=== PATIENT | female | born 1990 | race Caucasian/White ===

== ENCOUNTER → 2016-09-30 | Outpatient (CLI) | payer MEDICAID ==
[2016-09-30 11:03] LABS: CH 29.7; CHCM 32.2; HCT 35.1 % (34.0-46.0); HDW 2.42; HGB 11.2 gm/dL (11.4-16.0); MCH 29.6 pg (25.0-35.0); MCHC 31.9 g/dL (31.0-37.0); MCV 92.9 fL (80.0-100.0); RBC 3.78 m/uL (3.80-5.40); RDW 12.8 % (11.5-15.5)
== END | disposition home or self-care (01) ==
LOC: LABWHC1 09:31
PROVIDERS: ATTEND Obstetrics & Gynecology
DX: Z34.82 Encounter for supervision of other normal pregnancy, second trimester (principal); Z3A.00 Weeks of gestation of pregnancy not specified
CPT/HCPCS: 36415; 82950; 85027

== ENCOUNTER → 2016-12-06 | Outpatient (CLI) | payer MEDICAID ==
--- NOTE | 2016-12-06 16:42 | US ---
EXAMINATION TYPE: US OB anatomy transabd DATE OF EXAM: 12/06/2016 2:17 PM COMPARISON: 08/13/2016 HISTORY: 26-year-old female Large for dates O36.63X0 TECHNIQUE: Transabdominal (TA) EXAM MEASUREMENTS: GESTATIONAL AGE / DATING Physician Established: (35 weeks/3 days) EDC: 01/07/2017 Dates by LMP: (35 weeks/3 days) EDC: 01/07/2017 Dates by First Scan: (36 weeks/0 days) EDC: 01/03/2017 Dates by Current Scan for: (35 weeks/5 days) EDC: 01/05/2017 SURVEY IUP: Single PLACENTA: Anterior PREVIA: No previa MADI: 14.9 cm Normal CERVICAL LENGTH (transabdominal: norm > 3.0cm): 4.5 cm BIOMETRY PRESENTATION: Vertex LIE: Longitudinal BPD: 8.9 cm 35 weeks / 6 days HC: 31.8 cm 35 weeks / 5 days AC: 32.3 cm 36 weeks / 1 day FL: 6.9 cm 35 weeks / 2 days ESTIMATED WEIGHT IN GRAMS: 2793 grams ESTIMATED WEIGHT IN LBS/OZS: 6 lbs. 3 oz. 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 Single live intrauterine with estimated gestational age of 35 weeks 3 days by LMP. [facility] ultrasound biometry is concordant (35 weeks 5 days) place and the child at the 62nd percentile for weight. 2. A number of structures on the survey were either not seen or suboptimally visualized due to relatively advanced age.
== END | disposition home or self-care (01) ==
LOC: RADUSWWP 13:30
PROVIDERS: ATTEND Obstetrics & Gynecology
DX: O36.63X0 Maternal care for excessive fetal growth, third trimester, not applicable or unspecified (principal); Z3A.35 35 weeks gestation of pregnancy
CPT/HCPCS: 76811

== ENCOUNTER 2017-01-06 06:11 | Inpatient (IN) | payer MEDICAID ==
--- NOTE | 2017-01-05 20:50 | P.HPOB ---
History of Present Illness H&P Date: 01/05/17 Chief Complaint: Induction of labor This is a 26-year-old female 2 para 1 with an estimated date of confinement of 01/07/2017, estimated gestational age of 39-6/7 weeks, who presents to labor and delivery for induction of labor. She admits to good movement. She denies any rupture of membranes. She has been feeling irregular cramping and contractions. She also complains of continued swelling in her hands and feet. labs: Toxoplasma-negative Syphilis screening-negative HIV-nonreactive Random glucose-74 Hepatitis B surface antigen-negative Hemoglobin-11.9 Rubella-immune Blood type-old positive Antibody screen-negative Obstetrical ultrasound-normal anatomy One hour Glucola-118 Group B streptococcus-negative Obstetrical history: . History of 1 vaginal delivery at term with no complications. Gynecologic history: No history of sexual transmitted diseases. She does have a history of cold knife cone for TENNILLE-3 in approximately 2010. Social history: She is . 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 Review of Systems Constitutional: Denies chills, Denies fever Ears, nose, mouth and throat: Reports sinus pressure Cardiovascular: Denies chest pain Respiratory: Denies cough Gastrointestinal: Reports abdominal pain (Irregular contractions) Genitourinary: Reports pelvic pain, Reports Musculoskeletal: Denies myalgias Musculoskeletal: bilateral: foot swelling, hand swelling Neurological: Denies numbness, Denies weakness Past Medical History Past Medical History: No Reported History Additional Past Medical History / Comment(s): TMJ History of Any Multi-Drug Resistant Organisms: None Reported Past Surgical History: Cholecystectomy Additional Past Surgical History / Comment(s): Cervical cold knife cone biopsy 2010 Past Anesthesia/Blood Transfusion Reactions: No Reported Reaction Past Psychological History: No Psychological Hx Reported Smoking Status: Never smoker Past Alcohol Use History: None Reported Past Drug Use History: None Reported - Past Family History Mother Family Medical History: No Reported History Medications and Allergies Home Medications Medication Instructions Recorded Confirmed Type Pnv with Ca,No.71/Iron/FA 1 tab PO DAILY 06/11/15 06/12/15 History [Vol-Plus Tablet] Allergies Allergy/AdvReac Type Severity Reaction Status Date / Time prochlorperazine edisylate AdvReac Unknown Verified 06/12/15 06:12 [From Compazine] prochlorperazine maleate AdvReac Unknown Verified 06/12/15 06:12 [From Compazine] Exam Osteopathic Statement: *. No significant issues noted on an osteopathic structural exam other than those noted in the History and Physical/Consult. HEENT: Within normal limits Heart: Regular rate and rhythm Lungs: Clear to auscultation bilaterally Abdomen: Cervix: 1 L/60%/-2 heart tones: 140s by Doppler Extremities: Negative Homans Assessment and Plan (1) 39 weeks gestation of Status: Acute Plan: Proceed with induction of labor. Expectant management. Epidural anesthesia if desired.
[2017-01-06] MEDS ORDERED: CARBOPROST TROMETHAMINE 250 MCG/ML 1 ML AMP IM PRN (06:38)
[2017-01-06] MEDS ORDERED: TERBUTALINE 1 MG/ML VIAL SQ PRN (06:38)
[2017-01-06] MEDS ORDERED: OXYTOCIN 20 UNITS/1000 ML NS 1,000 ML IV SCH ×2 (06:38→15:12)
[2017-01-06] MEDS ORDERED: OXYTOCIN 10 UNIT/ML 1 ML VIAL IM PRN (06:38)
[2017-01-06] MEDS ORDERED: LIDOCAINE 1% (PF) 10 MG/ML (30 ML SDV) SQ PRN (06:38)
[2017-01-06] MEDS ORDERED: METHYLERGONOVINE 0.2 MG/ML 1 ML AMP IM PRN (06:38)
[2017-01-06] MEDS: LACTATED RINGERS 1,000 ML IV SCH ×3 (07:10→11:50)
[2017-01-06 07:17] LABS: Basophils % (A) 0 %; CH 29.5; CHCM 32.6; Eosinophils # (A) 0.1 k/uL (0-0.7); Eosinophils % (A) 1 %; HCT 33.8 % (34.0-46.0); Luc # (Auto) 0.22; Luc % (Auto) 3; Lymphocytes # (A) 1.7 k/uL (1.0-4.8); Lymphocytes % (A) 23 %; MCH 29.6 pg (25.0-35.0); MCHC 32.6 g/dL (31.0-37.0); Mean Platelet Volume 9.8; Monocytes # (A) 0.4 k/uL (0-1.0); Monocytes % (A) 6 %; Neutrophils % (A) 67 %; RBC 3.71 m/uL (3.80-5.40); WBC 7.5 k/uL (3.8-10.6); WBC (Perox) 7.73
[2017-01-06 07:41] VITALS: BMI 82.8
[2017-01-06] MEDS ORDERED: BUPIVACAINE (PF) 0.25% 30 ML VIAL ONE (10:45)
[2017-01-06] MEDS ORDERED: SODIUM CHLORIDE 0.9% 100 ML BAG ONE (10:45)
[2017-01-06] MEDS ORDERED: fentaNYL (PF) 50 MCG/ML 5 ML AMP ONE (10:45)
[2017-01-06] MEDS ORDERED: BUPIVACAINE (PF) 0.25% 25 ML, fentaNYL (PF) 200 MCG in SODIUM CHLORIDE 0.9% 71 ML EPIDURAL ONE (11:08)
[2017-01-06] MEDS ORDERED: diphenhydrAMINE 50 MG/ML 1 ML VIAL IVP PRN ×2 (15:12)
[2017-01-06] MEDS ORDERED: diphenhydrAMINE 25 MG CAP PO PRN (15:12)
[2017-01-06] MEDS ORDERED: diphenhydrAMINE 50 MG CAP PO PRN (15:12)
[2017-01-06] MEDS ORDERED: ZOLPIDEM 5 MG TAB PO PRN (15:12)
[2017-01-06] MEDS ORDERED: ACETAMINOPHEN TAB 325 MG TAB PO PRN (15:12)
[2017-01-06] MEDS ORDERED: WITCH HAZEL 1 EACH MED..PAD TOPICAL PRN (15:12)
[2017-01-06] MEDS ORDERED: Acetaminophen-Codeine 300-30mg TAB PO PRN ×2 (15:12)
[2017-01-06] MEDS ORDERED: BENZOCAINE/MENTHOL SPRAY 1 GM/SPRAY AEROSOL TOPICAL PRN (15:12)
[2017-01-06] MEDS ORDERED: LANOLIN CREAM 5 GM TUBE TOPICAL PRN (15:12)
[2017-01-06] MEDS ORDERED: FAMOTIDINE 20 MG TAB PO PRN (15:12)
[2017-01-06] MEDS ORDERED: HYDROCORTISONE 2.5% RECTAL CREAM 30 GM TUBE RECTAL PRN (15:12)
[2017-01-06] MEDS ORDERED: SIMETHICONE 80 MG CHEWABLE PO PRN (15:12)
[2017-01-06 15:50] VITALS: RESP 16
[2017-01-06] MEDS: IBUPROFEN 600 MG TAB PO PRN ×2 (16:59→23:24)
--- NOTE | 2017-01-06 17:38 | P.PROBDLV ---
Vaginal Delivery Note - . Vaginal Delivery Note: The patient progressed to complete dilation for oxytocin induction of labor and artificial rupture membranes with clear fluid noted. She did receive epidural anesthesia. Once reaching complete dilation, she began pushing. Infant's head came to a crown. Perineum was anesthetized with 1% lidocaine and a midline episiotomy was cut. With one further push, the contents head delivered across the perineum followed by the anterior shoulder. Nose and mouth were bulb suctioned at the perineum. With one further push the remainder the easily delivered and was placed on mother's abdomen reducing a nuchal cord times one around the 's body with delivery. Cord was clamped and cut. Infant was taken to warmer for evaluation. A viable female infant was noted with scores of 9 at 1 minute and 9 at 5 minutes and infant weight of 7 lbs. 4 oz. Placenta delivered shortly thereafter, intact, with a three-vessel cord. Uterus contracted well after oxytocin was given and uterine massage was carried out. Inspection of the perineum revealed a midline episiotomy with no further extension. Estimated blood loss is approximately 200 mL's. Both mother and are in stable condition.
[2017-01-06] MEDS: SENNOSIDES-DOCUSATE SODIUM 1 EACH TAB PO SCH (20:26)
[2017-01-07] MEDS: IBUPROFEN 600 MG TAB PO PRN (08:30)
[2017-01-07] MEDS: SENNOSIDES-DOCUSATE SODIUM 1 EACH TAB PO SCH (08:31)
--- NOTE | 2017-01-07 08:42 | P.DS ---
Providers Date of admission: 01/06/17 06:11 Expected date of discharge: 01/07/17 Attending physician: Rachael Nicole Primary care physician: Oscar Claros - Discharge Diagnosis(es) (1) 39 weeks gestation of Current Visit: Yes Status: Acute Hospital Course: This is a 26-year-old female 2 para 1 who presented for induction of labor. She delivered vaginally a viable female with scores of 9 at 1 minute and 9 at 5 minutes and weight of 7 lbs. 4 oz. on 01/06/2017. Her course has been uncomplicated. She is breast-feeding. Lochia is decreasing. Pain is well-controlled with ibuprofen. Vital signs are stable. Abdomen is soft with fundus firm and nontender. Extremities show negative Homans. Impression is status post vaginal delivery day #1. Plan is to discharge home today. Routine instructions are given. She will be given a prescription for ibuprofen. She already has a breast pump at home. She is advised to follow up in the office in 6 weeks for a check. She is advised to call the office if she has any questions or concerns prior to her appointment time. Procedures: Oxytocin induction of labor Spontaneous vaginal delivery of a viable female on 01/06/2017 Patient Condition at Discharge: Stable Plan - Discharge Summary New Discharge Prescriptions: Ibuprofen [Motrin] 600 mg PO Q6HR PRN #60 tab PRN Reason: Mild Pain Or Fever >= 100.5 Discharge Medication List Pnv with Ca,No.71/Iron/FA [Vol-Plus Tablet] 1 tab PO DAILY 06/11/15 [History] Acetaminophen Tab [Tylenol] 1,000 mg PO Q6HR PRN 01/06/17 [History] Ranitidine HCl [Zantac] 150 mg PO BID PRN 01/06/17 [History] Ibuprofen [Motrin] 600 mg PO Q6HR PRN #60 tab 01/07/17 [Rx] Follow up Appointment(s)/Referral(s): Rachael Nicole DO [Doctor of Osteopathic Medicine] - 6 Weeks Activity/Diet/Wound Care/Special Instructions: Instructions 1. Do not begin any exercise program for 3 weeks. 2. Do not resume sexual relations for 3 weeks or longer if uncomfortable. 3. You may take tub baths or showers at any time. 4. You may use tampons if desired after 3 weeks. 5. Keep the area of episiotomy (stitches) clean and dry. 6. If you are not nursing, wear a good fitting, supportive bra during the day and limit fluid intake for at least 1 week to prevent breast engorgement. 7. Call the office, [phone], within the next week to make appointment for your 6 week checkup if it has not already been made. 8. Report any of the following occurrences to the doctor promptly: a. Heavy, excessive bleeding b. Chills, fever c. Burning or frequency of urination d. Pain or redness and breasts if nursing e. Increasing pain or swelling in episiotomy (stitches). In addition to the above instructions, the following additional should be followed: 1. No heavy lifting or straining (exercising) until after 6 week checkup. 2. Keep abdominal incision clean and dry: You may wear a dressing if more comfortable. 3. Make office appointment for 10 days after going home or as instructed by her doctor. Discharge Disposition: HOME SELF-CARE
[2017-01-07 08:52] LABS: Basophils % (A) 0 %; CHCM 32.7; Eosinophils # (A) 0.1 k/uL (0-0.7); Eosinophils % (A) 1 %; HCT 32.9 % (34.0-46.0); HDW 2.44; HGB 10.7 gm/dL (11.4-16.0); Luc % (Auto) 2; Lymphocytes # (A) 1.4 k/uL (1.0-4.8); Lymphocytes % (A) 15 %; MCH 30.1 pg (25.0-35.0); MCHC 32.7 g/dL (31.0-37.0); Mean Platelet Volume 11.2; Monocytes # (A) 0.4 k/uL (0-1.0); Monocytes % (A) 5 %; Neutrophils # (A) 7.2 k/uL (1.3-7.7); Neutrophils % (A) 78 %; RBC 3.57 m/uL (3.80-5.40); RDW 14.3 % (11.5-15.5); WBC 9.3 k/uL (3.8-10.6); WBC (Perox) 9.74
[2017-01-07 16:56] VITALS: BP 124/76; PULSE 84; TEMP 98.2
== END 2017-01-07 16:30 | disposition home or self-care (01) | DRG 775 ==
LOC: 4FBP 06:11
PROVIDERS: ADMIT Obstetrics & Gynecology; ATTEND Obstetrics & Gynecology
PROC: 10E0XZZ Delivery of Products of Conception, External Approach (ICD-10-PCS; principal; 2017-01-06)
PROC: 10907ZC Drainage of Amniotic Fluid, Therapeutic from Products of Conception, Via Natural or Artificial Opening (ICD-10-PCS; 2017-01-06)
PROC: 3E033VJ Introduction of Other Hormone into Peripheral Vein, Percutaneous Approach (ICD-10-PCS; 2017-01-06)
PROC: 0W8NXZZ Division of Female Perineum, External Approach (ICD-10-PCS; 2017-01-06)
PROC: 3E0S3NZ Introduction of Analgesics, Hypnotics, Sedatives into Epidural Space, Percutaneous Approach (ICD-10-PCS; 2017-01-06)
DX: O69.89X0 Labor and delivery complicated by other cord complications, not applicable or unspecified (principal); M79.89 Other specified soft tissue disorders; Z86.001 Personal history of in-situ neoplasm of cervix uteri; Z37.0 Single live birth; Z3A.39 39 weeks gestation of pregnancy; Z88.8 Allergy status to other drugs, medicaments and biological substances; Z90.49 Acquired absence of other specified parts of digestive tract; Z87.39 Personal history of other diseases of the musculoskeletal system and connective tissue
CPT/HCPCS: 85025; 88307

== ENCOUNTER → 2018-03-22 | Outpatient (CLI) | payer MEDICAID ==
--- NOTE | 2018-03-22 08:24 | MR ---
EXAMINATION TYPE: MR angio head wo con DATE OF EXAM: 03/22/2018 8:02 AM COMPARISON: NONE HISTORY: PARK Three-dimensional [id number] intracranial MRA was performed with multiple intensity projection im ages submitted and source data reviewed at the workstation. The vertebrobasilar system as well as intracranial portions of the internal carotid arteries and thei r major tributaries are patent. I do not see evidence for sizable aneurysm or vascular malformation. IMPRESSION: Normal study.
--- NOTE | 2018-03-22 08:28 | MR ---
PRE AND POSTCONTRAST ENHANCED MRI OF THE BRAIN: CLINICAL HISTORY: Headache CONTRAST: 8.5ml gadavist Multiplanar and multispin-echo imaging of the brain was performed both before and after the administr ation of contrast. The ventricles, basal cisterns and sulci overlying the cerebral convexities are within normal limits. There is no evidence for midline shift or mass effect. Acute intracranial hemorrhage or extra-axial collection is not evident. There are small scattered foci of increased signal on the T2 FLAIR data set totaling approximately 7 within the right cerebral hemisphere and 7 within the left cerebral hemisphere measuring up to 3.4 mm in size. Lesions are predominantly subcortical in location and are nonspecific. Differential diagnos tic possibilities include sequela of chronic migraine headache, vasculitis, demyelinating disease, an d Lyme's disease among other possibilities. Following contrast administration, there is no evidence for pathologic enhancement or enhancing mass. The paranasal sinuses and mastoid air cells are well-aerated. IMPRESSION: Scattered nonspecific T2 lesions as noted above. Otherwise unremarkable study.
== END | disposition home or self-care (01) ==
LOC: RADMRIMAIN 07:08
PROVIDERS: ATTEND Family Medicine
DX: R90.89 Other abnormal findings on diagnostic imaging of central nervous system (principal); R51 Headache
CPT/HCPCS: 70544; 70553; A9581

== ENCOUNTER → 2018-12-04 | Outpatient (CLI) | payer MEDICAID ==
[2018-12-04 13:53] LABS: Basophils % (A) 1 %; Eosinophils # (A) 0.2 k/uL (0-0.7); Eosinophils % (A) 3 %; HCT 36.5 % (34.0-46.0); HGB 12.6 gm/dL (11.4-16.0); Lymphocytes % (A) 35 %; MCH 30.1 pg (25.0-35.0); MCHC 34.5 g/dL (31.0-37.0); MCV 87.3 fL (80.0-100.0); Mean Platelet Volume 9.9; Monocytes # (A) 0.3 k/uL (0-1.0); Monocytes % (A) 5 %; Neutrophils # (A) 3.1 k/uL (1.3-7.7); Neutrophils % (A) 54 %; Platelet Count 178 k/uL (150-450); RBC 4.19 m/uL (3.80-5.40); WBC 5.7 k/uL (3.8-10.6)
== END | disposition home or self-care (01) ==
LOC: LABPAT 12:09
PROVIDERS: ATTEND Obstetrics & Gynecology
DX: Z01.812 Encounter for preprocedural laboratory examination (principal)
CPT/HCPCS: 85025

== ENCOUNTER 2018-12-05 07:08 | Day surgery (SDC) | payer MEDICAID ==
[2018-11-29 09:23] VITALS: BMI 31.3
--- NOTE | 2018-12-04 20:00 | P.HPOB ---
History of Present Illness H&P Date: 12/04/18 Chief Complaint: Menorrhagia with regular cycle This is a 28-year-old female 2 para 2 who presents for dilation and curettage with hysteroscopy and NovaSure endometrial ablation secondary to menorrhagia with regular cycle. She is on control pills and has been having breakthrough bleeding for at least 3 days of the third week of her pack. Her menses are heavy and lasting 5-7 days. She does have a history of heavy menses before her control pills. Her plans to have a vasectomy. Pelvic ultrasound showed uterus measuring 6.6 x 3 x 4.4 cm. Endometrial thickness was 0.5 cm. Both ovaries appeared normal. Obstetrical history: . History of 2 vaginal deliveries. Gynecologic history: No history of sexual transmitted diseases. Social history: She is . 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 Review of Systems Constitutional: Denies chills, Denies fever Eyes: denies blurred vision, denies pain Ears, nose, mouth and throat: Denies sore throat Cardiovascular: Denies chest pain, Denies shortness of breath Respiratory: Denies cough Gastrointestinal: Denies abdominal pain, Denies diarrhea, Denies nausea, Denies vomiting Genitourinary: Reports dysmenorrhea, Denies dysuria, Denies hematuria Musculoskeletal: Denies myalgias Integumentary: Denies pruritus, Denies rash Neurological: Reports headaches, Reports numbness (Hands) Psychiatric: Reports anxiety Endocrine: Denies fatigue, Denies weight change Past Medical History Additional Past Medical History / Comment(s): TMJ, migraines History of Any Multi-Drug Resistant Organisms: None Reported Past Surgical History: Cholecystectomy Additional Past Surgical History / Comment(s): Cervical cold knife cone biopsy, colonoscopy, EGD. Past Anesthesia/Blood Transfusion Reactions: No Reported Reaction Past Psychological History: Anxiety Smoking Status: Former smoker Past Alcohol Use History: Occasional Additional Past Alcohol Use History / Comment(s): Social smoker for few yrs, quit 5 yrs ago. Past Drug Use History: None Reported - Past Family History Mother Family Medical History: No Reported History Father Family Medical History: Hypertension Medications and Allergies Home Medications Medication Instructions Recorded Confirmed Type Cetirizine HCl [Zyrtec] 10 mg PO DAILY PRN 11/29/18 11/29/18 History Citalopram Hydrobromide [CeleXA] 10 mg PO QAM 11/29/18 11/29/18 History Multivitamins, Thera [Multivitamin 1 tab PO DAILY 11/29/18 11/29/18 History (formulary)] Propranolol HCl 60 mg PO QAM 11/29/18 11/29/18 History Allergies Allergy/AdvReac Type Severity Reaction Status Date / Time prochlorperazine edisylate AdvReac Confusion Verified 11/29/18 09:11 [From Compazine] prochlorperazine maleate AdvReac Confusion Verified 11/29/18 09:11 [From Compazine] Exam Osteopathic Statement: *. No significant issues noted on an osteopathic structural exam other than those noted in the History and Physical/Consult. HEENT: Within normal limits Heart: Regular rate and rhythm Lungs: Clear to auscultation bilaterally Abdomen: Soft, nontender Pelvic exam: Uterus is anteverted, nontender, with no adnexal masses or tenderness palpated. Extremities: Negative Homans Assessment and Plan (1) Menorrhagia with regular cycle Status: Acute Code(s): N92.0 - EXCESSIVE AND FREQUENT MENSTRUATION WITH REGULAR CYCLE SNOMED Code(s): 880284310 Plan: Proceed with dilation and curettage with hysteroscopy and NovaSure endometrial ablation. I have discussed the risks, benefits, and alternative therapies for the above- mentioned procedure and for both sedation/anesthesia as well as necessary blood products administration, if indicated, as they pertain to this patient. The patient has indicated her understanding and acceptance of the risks and procedures discussed.
[~2018-12-05 07:08] MED LIST: DEXAMETHASONE SOD PHOSPHATE 10 MG/ML 1 ML VIAL IV ONE; LACTATED RINGERS 1,000 ML IV SCH; LIDOCAINE 1% 20 ML VIAL (10MG/ML) FOR IV START INTRADERMA PRN; MIDAZOLAM (PF) 2 MG/2 ML VIAL IV PRN; ONDANSETRON 4 MG/2 ML VIAL IVP ONE; Pre Op ABX Message 1 EACH MISC MISCELLANE ONE; fentaNYL (PF) 50 MCG/ML 2 ML AMP IV PRN
[2018-12-05 07:33] VITALS: RESP 16
[2018-12-05] MEDS ORDERED: fentaNYL (PF) 50 MCG/ML 2 ML AMP ONE (08:31)
[2018-12-05] MEDS ORDERED: LIDOCAINE 1% INJ 10MG/ML (20 ML MDV) ONE (08:31)
[2018-12-05] MEDS ORDERED: KETOROLAC 30 MG/ML 1 ML VIAL ONE (08:31)
[2018-12-05] MEDS ORDERED: MIDAZOLAM 2 MG/2 ML VIAL ONE (08:31)
[2018-12-05] MEDS ORDERED: PROPOFOL 10 MG/ML 20 ML VIAL IV ONE (08:31)
--- NOTE | 2018-12-05 09:06 | P.OP ---
Date of Procedure: 12/05/18 Preoperative Diagnosis: Menorrhagia with regular cycle Postoperative Diagnosis: Same Procedure(s) Performed: Dilation and curettage with hysteroscopy and NovaSure endometrial ablation Anesthesia: other (Mask general) Surgeon: Rachael Nicole Estimated Blood Loss (ml): 10 Pathology: other (Endometrial curettings) Condition: stable Disposition: same day Indications for Procedure: This is a 28-year-old female 2 para 2 who presents for dilation and curettage with hysteroscopy and NovaSure endometrial ablation secondary to menorrhagia with regular cycle. She is on control pills and has been having breakthrough bleeding for at least 3 days of the third week of her pack. Her menses are heavy and lasting 5-7 days. She does have a history of heavy menses before her control pills. Her plans to have a vasectomy. Pelvic ultrasound showed uterus measuring 6.6 x 3 x 4.4 cm. Endometrial thickness was 0.5 cm. Both ovaries appeared normal. Operative Findings: Uterus is sounded to 8 cm. Cervix is sounded to 3 cm. Upon hysteroscopy, slightly dyssynchronous endometrial pattern was noted with possible endometrial polyp. A moderate amount of endometrial curettings are obtained. Grade 2 cystocele is noted along with grade 1-2 uterine prolapse. Description of Procedure: The patient is taken to the operating room. She is placed in the dorsal lithotomy position after general anesthesia was given. She is prepped and draped in the normal sterile fashion. Bladder is drained with a catheter and then removed. Pelvic exam is performed under anesthesia. Uterus is found to be anteverted with no adnexal masses. She is placed in slight Trendelenburg position. A right angle retractor is used to visualize the cervix. The anterior lip of the cervix is grasped with a single-tooth tenaculum. Cervix is sounded to 3 cm. Uterus is sounded to 8 cm. Cervix is gently dilated with Rooney dilators until a hysteroscope could be passed. Hysteroscopy is performed using normal saline. The above noted findings are noted. Next a polyp forceps is introduced. A moderate amount of tissue was obtained. Next medium-sized size sharp curette was placed. A moderate amount of endometrial curettings were obtained. Next NovaSure array was inserted into the endometrial cavity. Length was set at 5 cm and width was determined to be 2.8 cm. Next cavity assessment was completed and passed on the first try. Next NovaSure array was fired at 77 W for 90 seconds. Next the array was removed, inspected and then discarded. Next the hysteroscope was reinserted. Uniform charring was noted. Pictures w ere taken. Hysteroscope was removed. Single-tooth tenaculum was removed from the anterior lip of the cervix. Minimal bleeding was noted. All other instruments removed from the vagina. Sponge counts were correct. Patient is taken to recovery room in stable condition.
[2018-12-05 09:18] VITALS: TEMP 97.4
[2018-12-05] MEDS ORDERED: LACTATED RINGERS 1,000 ML IV ONE (10:38)
[2018-12-05] MEDS ORDERED: ONDANSETRON 4 MG/2 ML VIAL IVP ONE (10:40)
[2018-12-05 10:59] VITALS: BP 122/59; PULSE 65
== END 2018-12-05 11:08 | disposition home or self-care (01) ==
LOC: OR 07:08
PROVIDERS: ATTEND Obstetrics & Gynecology
DX: N92.0 Excessive and frequent menstruation with regular cycle (principal); F41.9 Anxiety disorder, unspecified; N81.4 Uterovaginal prolapse, unspecified; G43.909 Migraine, unspecified, not intractable, without status migrainosus; Z79.3 Long term (current) use of hormonal contraceptives; Z87.891 Personal history of nicotine dependence; Z79.899 Other long term (current) drug therapy; Z88.8 Allergy status to other drugs, medicaments and biological substances
CPT/HCPCS: 58563; 81025; 88305; J2250; J1100; J2405; J2001; J3010; J1885; J2704

== ENCOUNTER → 2022-01-04 | Outpatient (CLI) | payer MEDICAID ==
--- NOTE | 2022-01-04 22:47 | CT ---
EXAMINATION TYPE: CT sinus wo con DATE OF EXAM: 01/04/2022 COMPARISON: No previous CT scan is available for comparison. HISTORY: chronic sinusitis CT DLP: 680.10 mGycm. Automated Exposure Control for Dose Reduction was Utilized. TECHNIQUE: CT scan of the sinuses is performed without contrast, axial images are obtained, coronal r eformatted images are also reviewed. FINDINGS: Slightly deviated bony nasal septum convex to the right side. Pneumatization of the left vertical watson giuliana. Otherwise unremarkable middle and inferior turbinates. Minimal mucosal thickening of the inferi or aspects of the nasal fossa bilaterally. Patent infundibulum and ostiomeatal complexes. Minimal mucosal thickening of the alveolar recesses of the maxillary sinuses, slightly more on the right side. Intact bony boundary of the maxillary sinuse s. Hypoplastic frontal sinus. Clear ethmoid air cells and sphenoid sinus. Patent sphenoethmoidal recesses. Clear visualized mastoid air cells. Slightly prominent nasopharyngea l and palatine tonsils, please correlate clinically. Scattered subcentimeter bilateral upper cervical lymph nodes, nonspecific. Grossly unremarkable visualized portion of the brain and orbits. IMPRESSION: Minimal mucosal thickening of the alveolar recesses of the maxillary sinuses more on the right side as described above. Otherwise no convincing evidence of chronic sinusitis. Incidental find ings as described above.
== END | disposition home or self-care (01) ==
LOC: RADCTMAIN 17:19
PROVIDERS: ATTEND Otolaryngology
DX: J32.9 Chronic sinusitis, unspecified (principal)
CPT/HCPCS: 70486

== ENCOUNTER → 2023-09-06 | Outpatient (CLI) | payer MEDICAID ==
[2023-09-06 15:24] LABS: HCT 37.7 % (37.2-46.3); MCH 29.9 pg (27.0-32.0); MCHC 31.8 g/dL (32.0-37.0); MCV 93.8 FL (80.0-97.0); Mean Platelet Volume 11.7 FL (9.5-12.2); NRBC Per 100 WBC 0 X 10*3/uL (0.00-0.01); Platelet Count 171 X 10*3/uL (140-440); RBC 4.02 X 10*6/uL (4.10-5.20); RDW 12.8 % (11.5-14.5); WBC 3.85 X 10*3/uL (4.50-10.00)
[2023-09-06 15:30] LABS: ALT 102 U/L (8-44); AST 86 U/L (13-35); Albumin 4.8 g/dL (3.8-4.9); Alkaline Phosphatase 65 U/L (41-126); BUN/Creat Ratio 20.43 Ratio (12.00-20.00); Blood Urea Nitrogen 14.3 mg/dL (9.0-27.0); Calcium 9.8 mg/dL (8.7-10.3); Carbon Dioxide 26.4 mmol/L (21.6-31.8); Chloride 103 mmol/L (96-109); Chol/HDL Ratio 2.22 Ratio; Glucose 78 mg/dL (70-110); LDL Cholesterol,Calculated 69.1 mg/dL (0.0-131.0); Potassium 4.6 mmol/L (3.5-5.5); Sodium 140 mmol/L (135-145); Total Bilirubin 0.4 mg/dL (0.3-1.2); Total Protein 7.8 g/dL (6.2-8.2); VLDL Calculation 12.68 mg/dL (5.00-40.00)
--- NOTE | 2023-09-07 15:41 | MM ---
Reason for Exam: Screening (asymptomatic). Baseline mammogram. Patient History: Menarche at age 9. First Full-Term at age 25. Hysterectomy at age 32. Maternal grandmother had breast cancer, age 40. Maternal aunt had breast cancer, age 40. Risk Values: Nory 5 year model risk: 0.4%. NCI Lifetime model risk: 12.4%. Prior Study Comparison: Patient's first Mammogram. Tissue Density: There are scattered fibroglandular densities. Findings: Analyzed By CAD. Pattern appears symmetrical. No suspicious groups of microcalcifications, spiculated or lobular masses, architectural distortion or other secondary signs of malignancy are mammographically apparent. Overall Assessment: Negative, BI-RAD 1 Management: Screening Mammogram of both breasts in 1 year. A negative mammogram report should not preclude additional follow up of suspicious palpable abnormalities. Patient should continue monthly self breast exam. A clinical breast exam by your physician is recommended on an annual basis and results should be correlated with mammographic findings. Electronically signed and approved by: Nito Vivas D.O. Radiologis
== END | disposition home or self-care (01) ==
LOC: RADMAMWWP 09:28
PROVIDERS: ATTEND Family Medicine
DX: Z12.31 Encounter for screening mammogram for malignant neoplasm of breast (principal); Z00.00 Encounter for general adult medical examination without abnormal findings; K59.00 Constipation, unspecified; E66.09 Other obesity due to excess calories; Z80.3 Family history of malignant neoplasm of breast
CPT/HCPCS: 77063; 77067; 80053; 80061; 84443; 85027; 86001

== ENCOUNTER → 2023-09-22 | Outpatient (CLI) | payer MEDICAID ==
[2023-09-22 15:22] LABS: ALT 22 U/L (8-44); AST 23 U/L (13-35); Albumin 4.6 g/dL (3.8-4.9); Albumin/Globulin Ratio 1.64 Ratio (1.60-3.17); Alkaline Phosphatase 55 U/L (41-126); BUN/Creat Ratio 16.57 Ratio (12.00-20.00); Blood Urea Nitrogen 11.6 mg/dL (9.0-27.0); Calcium 9.6 mg/dL (8.7-10.3); Carbon Dioxide 27.3 mmol/L (21.6-31.8); Chloride 105 mmol/L (96-109); GGT 19 U/L (0-38); Globulin 2.8 g/dL (1.6-3.3); Glucose 88 mg/dL (70-110); Potassium 4.5 mmol/L (3.5-5.5); Sodium 141 mmol/L (135-145); Total Bilirubin 0.3 mg/dL (0.3-1.2); Total Protein 7.4 g/dL (6.2-8.2)
[2023-09-22 16:25] LABS: Hepatitis A Antibody IgM Nonreactive; Hepatitis B Core IgM Nonreactive; Hepatitis B Surface Antigen Nonreactive; Hepatitis C IgG Antibody Nonreactive
== END | disposition home or self-care (01) ==
LOC: LABWHC1 09:29
PROVIDERS: ATTEND Family Medicine
DX: K90.41 Non-celiac gluten sensitivity (principal); R74.9 Abnormal serum enzyme level, unspecified; Z91.011 Allergy to milk products
CPT/HCPCS: 36415; 80053; 80074; 82977

== ENCOUNTER → 2024-05-08 | Outpatient (CLI) | payer MEDICAID ==
[2024-05-08 18:02] LABS: HCT 33.7 % (37.2-46.3); MCH 30.6 pg (27.0-32.0); MCHC 32.6 g/dL (32.0-37.0); MCV 93.6 FL (80.0-97.0); Mean Platelet Volume 12.4 FL (9.5-12.2); NRBC Per 100 WBC 0 X 10*3/uL (0.00-0.01); Platelet Count 140 X 10*3/uL (140-440); RDW 12.2 % (11.5-14.5); WBC 4.92 X 10*3/uL (4.50-10.00)
[2024-05-08 21:35] LABS: ALT 9 U/L (8-44); AST 15 U/L (13-35); Albumin 4.4 g/dL (3.8-4.9); Albumin/Globulin Ratio 1.69 Ratio (1.60-3.17); Alkaline Phosphatase 72 U/L (41-126); BUN/Creat Ratio 14.86 Ratio (12.00-20.00); Blood Urea Nitrogen 10.4 mg/dL (9.0-27.0); Carbon Dioxide 24.9 mmol/L (21.6-31.8); Chloride 104 mmol/L (96-109); Chol/HDL Ratio 2.37 Ratio; Globulin 2.6 g/dL (1.6-3.3); Glucose 99 mg/dL (70-110); LDL Cholesterol,Calculated 64.7 mg/dL (0.0-131.0); Sodium 140 mmol/L (135-145); Total Bilirubin <0.2 mg/dL (0.3-1.2); VLDL Calculation 10.96 mg/dL (5.00-40.00)
[2024-05-08 21:36] LABS: T4, Free (Free Thyroxine) 0.87 ng/dL (0.80-1.80)
== END | disposition home or self-care (01) ==
LOC: LABWHC1 14:34
PROVIDERS: ATTEND Family Medicine
DX: F41.9 Anxiety disorder, unspecified (principal); E63.9 Nutritional deficiency, unspecified; R74.01 Elevation of levels of liver transaminase levels
CPT/HCPCS: 36415; 80053; 80061; 82306; 82533; 84439; 84443; 84481; 85027

== ENCOUNTER → 2024-06-29 | Outpatient (CLI) | payer MEDICAID ==
--- NOTE | 2024-06-29 08:41 | US ---
EXAMINATION TYPE: US abdomen limited DATE OF EXAM: 06/29/2024 COMPARISON: NONE CLINICAL INDICATION: Female, 34 years old with history of R94.5 LFT'S; Elevated LFT's. Cholecystectom y TECHNIQUE: Grayscale and color Doppler imaging of the right upper quadrant was performed. FINDINGS: EXAM MEASUREMENTS: Liver Length: 15.0 cm Gallbladder Wall: Surgically absent CBD: 0.4 cm Right Kidney: 10.3 x 4.7 x 4.2 cm OPTICAL INSTRUMENT INSPECTOR NOTES:*Limitations due to large amount of overlying bowel gas Pancreas: Obscured by bowel gas Liver: appears wnl Gallbladder: Surgically absent Evidence for sonographic Lopez's sign: no CBD: wnl Right Kidney: no evidence of hydronephrosis IMPRESSION: No evidence for acute process. [facility], , 06/29/2024 8:38 AM
== END | disposition home or self-care (01) ==
LOC: RADUSWWP 07:34
PROVIDERS: ATTEND Family Medicine
DX: D64.9 Anemia, unspecified (principal); M25.50 Pain in unspecified joint; R94.5 Abnormal results of liver function studies; R14.0 Abdominal distension (gaseous)
CPT/HCPCS: 76705

== ENCOUNTER → 2024-06-29 | Outpatient (CLI) | payer MEDICAID ==
[2024-06-29 14:59] LABS: HCT 36.5 % (37.2-46.3); HGB 11.8 g/dL (12.0-15.0); MCH 30.8 pg (27.0-32.0); MCHC 32.3 g/dL (32.0-37.0); MCV 95.3 FL (80.0-97.0); Mean Platelet Volume 11.8 FL (9.5-12.2); NRBC Per 100 WBC 0 X 10*3/uL (0.00-0.01); Platelet Count 148 X 10*3/uL (140-440); RBC 3.83 X 10*6/uL (4.10-5.20); RDW 12.1 % (11.5-14.5); WBC 5.25 X 10*3/uL (4.50-10.00)
[2024-06-29 15:32] LABS: Erythrocyte Sedimentation Rate 4 mm/Hr (0-20)
[2024-06-29 16:58] LABS: C Reactive Protein <0.30 mg/dL (0.00-0.80); Ferritin 57.3 ng/mL (10.0-291.0); Iron 100 UG/DL (50-170); Rheumatoid Factor, Qnt <15 IU/mL (0-15); Total Iron Binding Capacity 346 UG/DL (228-460)
== END | disposition home or self-care (01) ==
LOC: LABWHC1 08:05
PROVIDERS: ATTEND Physician Assistant
DX: D64.9 Anemia, unspecified (principal); R14.0 Abdominal distension (gaseous); M25.50 Pain in unspecified joint
CPT/HCPCS: 36415; 82728; 83540; 83550; 83735; 85027; 85652; 86038; 86140; 86431

== ENCOUNTER 2024-07-31 10:11 | Day surgery (SDC) | payer MEDICAID ==
[2024-07-31 10:43] VITALS: TEMP 98
[2024-07-31] MEDS: IV FLUID CONTINUATION 1,000 ML IV ONE (10:56)
[2024-07-31] MEDS: LACTATED RINGERS 1,000 ML IV SCH (10:56)
[2024-07-31] MEDS ORDERED: PROPOFOL 10 MG/ML 20 ML VIAL IV ONE (11:31)
[2024-07-31] MEDS ORDERED: LIDOCAINE 1% INJ 10MG/ML (20 ML MDV) ONE (11:31)
--- NOTE | 2024-07-31 11:39 | P.GSHP ---
History of Present Illness H&P Date: 07/31/24 Chief Complaint: History of colon polyps 34-year-old female here for colonoscopy. Has had some pain with bowel function recently. History of endometriosis. Last colonoscopy 12 years ago. History of colon polyps. Past Medical History Past Medical History: No Reported History Additional Past Medical History / Comment(s): TMJ; precancerous cervical cells; hx colon polyps History of Any Multi-Drug Resistant Organisms: None Reported Past Surgical History: Cholecystectomy, Hysterectomy, Uterine Ablation Additional Past Surgical History / Comment(s): Cervical cold knife cone biopsy, colonoscopy, EGD. Past Anesthesia/Blood Transfusion Reactions: No Reported Reaction Additional Past Anesthesia/Blood Transfusion Reaction / Comment(s): pt states she gets lightheaded after anesthesia, low blood pressure after hysterectomy Smoking Status: Former smoker - Past Family History Father Family Medical History: Hypertension Mother Family Medical History: No Reported History Medications and Allergies Home Medications Medication Instructions Recorded Confirmed Type Cetirizine HCl [Zyrtec] 10 mg PO HS PRN 11/29/18 07/23/24 History Multivitamins, Thera [Multivitamin 1 tab PO DAILY 11/29/18 07/23/24 History (formulary)] Ascorbic Acid [Vitamin C] 1,000 mg PO HS 07/23/24 07/23/24 History Cholecalciferol (Vitamin D3) 75 mcg PO HS 07/23/24 07/23/24 History [Vitamin D3] DULoxetine HCL [Cymbalta] 30 mg PO HS 07/23/24 07/23/24 History Magnesium Gluconate [Magonate] 500 mg PO HS 07/23/24 07/23/24 History Magnesium Oxide [Magnesium] 500 mg PO HS 07/23/24 07/23/24 History Progesterone, Micronized 100 mg PO HS 07/23/24 07/23/24 History [Progesterone] Vitamin B-2 1 dose PO DAILY 07/23/24 07/31/24 History estradioL [estradioL (Once Weekly) 1 patch TRANSDERM DIRECTED 07/23/24 07/23/24 History 0.1mg Patch] Allergies Allergy/AdvReac Type Severity Reaction Status Date / Time prochlorperazine edisylate AdvReac Confusion Verified 07/31/24 10:34 [From Compazine] prochlorperazine maleate AdvReac Confusion Verified 07/31/24 10:34 [From Compazine] Surgical - Exam Vital Signs Temp Pulse Resp BP Pulse Ox 98.0 F 85 20 120/64 98 07/31/24 10:42 07/31/24 10:42 07/31/24 10:42 07/31/24 10:42 07/31/24 10:42 Physical exam: General: Well-developed, well-nourished HEENT: Normocephalic, sclerae nonicteric Abdomen: Nontender, nondistended Extremities: No edema Neuro: Alert and oriented Assessment and Plan (1) History of colon polyps Narrative/Plan: Will proceed with colonoscopy at this time. Current Visit: Yes Status: Acute Code(s): Z86.0100 - PERSONAL HISTORY OF COLON POLYPS, UNSPECIFIED SNOMED Code(s): 830456986
--- NOTE | 2024-07-31 11:52 | P.PCN ---
Date of Procedure: 07/31/24 Procedure(s) Performed: PREOPERATIVE DIAGNOSIS: History of colon polyps POSTOPERATIVE DIAGNOSIS: Normal exam PROCEDURE: Colonoscopy ANESTHESIA: MAC SURGEON: Ezio Romo M.D. SPECIMENS: None ENDOSCOPIC PROCEDURE: The patient was placed on the endoscopy table in the left decubitus position. The Olympus colonoscope was inserted into the anus and passed under direct visualization to the base of the cecum. The appendiceal orifice was visualized. From that point the scope was slowly withdrawn inspect ing all surfaces carefully. There were no neoplastic inflammatory or polypoid lesions throughout the cecum, ascending, transverse, descending, sigmoid and rectum. There was no visible diverticulosis noted. Digital rectal examination was normal. The patient was taken to the recovery room in stable condition per anesthesia guidelines. RECOMMENDATIONS: Resume diet. Repeat colonoscopy 10 years.
[2024-07-31 12:05] VITALS: RESP 16
[2024-07-31 12:18] VITALS: BP 111/78; PULSE 67
== END 2024-07-31 12:38 | disposition home or self-care (01) ==
LOC: ORWHC2ENDO 10:11
PROVIDERS: ATTEND Surgery
DX: Z12.11 Encounter for screening for malignant neoplasm of colon (principal); F41.9 Anxiety disorder, unspecified; Z79.890 Hormone replacement therapy; Z79.899 Other long term (current) drug therapy; Z86.0100 Personal history of colon polyps, unspecified; Z87.891 Personal history of nicotine dependence; Z88.8 Allergy status to other drugs, medicaments and biological substances
CPT/HCPCS: J2003; J2704; G0121; 45378

== ENCOUNTER → 2024-08-24 | Outpatient (CLI) | payer MEDICAID ==
[2024-08-27 10:50] LABS: Beef IgE <0.10 kU/L (<0.10); Beef IgE Class CLASS 0; Pork IgE Class CLASS 0
== END | disposition home or self-care (01) ==
LOC: LABWHC1 14:29
PROVIDERS: ATTEND Family Medicine
DX: R14.0 Abdominal distension (gaseous) (principal); R94.5 Abnormal results of liver function studies
CPT/HCPCS: 36415; 86003; 86008

== ENCOUNTER → 2024-09-21 | Outpatient (CLI) | payer MEDICAID ==
--- NOTE | 2024-09-21 13:38 | MM ---
Reason for Exam: Screening (asymptomatic). Last screening mammogram was performed 12 month(s) ago. Patient History: Menarche at age 9. First Full-Term at age 25. Hysterectomy at age 32. Patient used Hormonal Contraceptives for 11 years. Currently using Estrogen and Progesterone, for 1 year. Maternal grandmother had breast cancer, age 40. Maternal aunt had breast cancer, age 40. Risk Values: Nory 5 year model risk: 0.4%. NCI Lifetime model risk: 12.3%. Prior Study Comparison: 09/06/2023 Bilateral MG 3D screening mammo w/cad, [facility]. Tissue Density: The breasts are heterogeneously dense, which may obscure small masses. Findings: Analyzed By CAD. There is no suspicious group of microcalcifications or new suspicious mass in either breast. Overall Assessment: Negative, BI-RAD 1 Management: Screening Mammogram of both breasts in 1 year. . Patient should continue monthly self-breast exams. A clinical breast exam by your physician is recommended on an annual basis. This exam should not preclude additional follow-up of suspicious palpable abnormalities. Note on Nory scores and lifetime risk: 1. A Nory score greater than 3% is considered moderate risk. If this is the case, consider specialist referral to assess eligibility for a risk reducing agent. 2. If overall lifetime risk for the development of breast cancer is 20% or higher, the patient may qualify for future screening with alternating mammogram and breast MRI. [facility], , 09/21/2024 1:36 PM. Electronically signed and approved by: Carlo Levi M.D. Radiologist
== END | disposition home or self-care (01) ==
LOC: RADMAMWWP 12:54
PROVIDERS: ATTEND Family Medicine
DX: Z12.31 Encounter for screening mammogram for malignant neoplasm of breast (principal); R92.333 Mammographic heterogeneous density, bilateral breasts; Z80.3 Family history of malignant neoplasm of breast
CPT/HCPCS: 77063; 77067